=== PATIENT | female | born 1985 | race Two or more races ===

== ENCOUNTER 2019-10-03 01:16 | Emergency (ER) | payer OTHER ==
[~2019-10-03] VITALS: Ht 160 cm; Wt 41.7 kg
[2019-10-03] MEDS ORDERED: DUI500 PO (02:03)
== END 2019-10-03 02:08 ==
LOC: ER 01:16
DX: S01.82XA Laceration with foreign body of other part of head, initial encounter (principal); W18.09XA Striking against other object with subsequent fall, initial encounter; Y93.89 Activity, other specified; Y92.098 Other place in other non-institutional residence as the place of occurrence of the external cause; Y99.8 Other external cause status

== ENCOUNTER 2024-04-04 14:48 | Emergency (ER) | payer OTHER ==
[~2024-04-04] VITALS: Ht 160 cm; Wt 41.7 kg
[~2024-04-04 14:48] MED LIST: DUI500 PO
[2024-04-04] MEDS ORDERED: BISACODYL 10 MG/SUPP.RECT SUPP.RECT RECTAL STA (17:00)
[2024-04-04] MEDS ORDERED: LACTULOSE 20 G/30 ML BLIST.PACK PO STA (17:06)
[2024-04-04] MEDS ORDERED: BISACODYL 10 MG/SUPP.RECT SUPP.RECT RECTAL ONE (17:12)
[2024-04-04] MEDS ORDERED: MINERAL OIL 30 ML BLIST.PACK ONE (17:12)
[2024-04-04] MEDS ORDERED: LACTULOSE 20 G/30 ML BLIST.PACK ONE (17:12)
[2024-04-04 17:45] LABS: PH,URINE 5.5 (5.0-8.0); URINE APPEARANCE Clear; URINE BILIRRUBIN Negative (NEGATIVE); URINE BLOOD Negative; URINE COLOR Yellow; URINE GLUCOSE Negative (NEGATIVE); URINE LEUKOCYTE Negative; URINE NITRATE Negative; URINE PROTEIN Negative (NEGATIVE)
[2024-04-04 17:49] LABS: URINE BACTERIA 443.5 uL (0.0-1933); URINE EPITHELIAL CELLS 6.3 uL (0.0-38.8); URINE WBC 3.5 uL (0.0-23.2)
[2024-04-04] MEDS ORDERED: MIRALAX17 GM PO (22:56)
== END 2024-04-04 23:00 | disposition home or self-care (01) ==
LOC: ER 14:49
PROVIDERS: Emergency Medicine
DX: K59.00 Constipation, unspecified (principal); N83.202 Unspecified ovarian cyst, left side